=== PATIENT | male | born 1985 | race Hispanic/Latino ===

== ENCOUNTER 2016-08-15 12:42 | Emergency (ER) | payer OTHER ==
[2016-08-15 12:46] VITALS: RESP 18; TEMP 98.2
[2016-08-15] MEDS ORDERED: Oxycodone/Acetaminophen 5/325 mg Tab PO STA ×2 (12:52→16:00)
[2016-08-15] MEDS ORDERED: Oxycodone/Acetaminophen 5/325 mg Tab ONE ×2 (13:04→15:53)
[2016-08-15] MEDS ORDERED: ceFAZolin IV 2 gm in Dextrose 1 GM/50 ML BAG IVPB SCH (13:45)
--- NOTE | 2016-08-15 13:45 | C.PDOC ---
History Of Present Illness 30 yo male BIBA for evaluation of Right lower leg pain, swelling developed since last night " fell off my bed". Pt sts, "woke up this AM, was unable to put any weight on Right led". Pt denies LOC, syncope, headache, dizziness, neck pain, CP, abd. pain, N/V, back pain, pt denies obvious deformity, sensory or vascular deficits to B/L UEs and LEs. AT the time of evaluation, pt appears in pain. Time Seen by Provider: 08/15/16 12:49 Chief Complaint (Nursing): Lower Extremity Problem/Injury History Per: Patient History/Exam Limitations: no limitations Onset/Duration Of Symptoms: Sudden Onset (Last night) Past Medical History Reviewed: Historical Data, Nursing Documentation, Vital Signs Vital Signs: Last Vital Signs Temp 98.2 F 08/15/16 15:35 Pulse 75 08/15/16 16:00 Resp 18 08/15/16 16:00 BP 128/75 08/15/16 16:00 Pulse Ox 98 08/15/16 16:00 - Medical History PMH: Hiatal Hernia Family History: States: No Known Family Hx - Social History Hx Alcohol Use: Yes Hx Substance Use: No - Immunization History Hx Tetanus Toxoid Vaccination: Yes Hx Influenza Vaccination: No Hx Pneumococcal Vaccination: Yes Review Of Systems Except As Marked, All Systems Reviewed And Found Negative. Gastrointestinal: Negative for: Nausea, Vomiting, Abdominal Pain Musculoskeletal: Positive for: Leg Pain (Right lower leg pain and swelling ). Negative for: Neck Pain, Back Pain Neurological: Negative for: Headache, Dizziness Physical Exam - Physical Exam Appears: Well, Non-toxic Skin: Normal Color, Warm, Dry Head: Atraumatic, Normacephalic Eye(s): bilateral: PERRL Nose: No Deformity, No Tenderness Throat: Normal, No Erythema, No Exudate, No Drooling Neck: Normal ROM, Trachea Midline, No Midline Cervical Tenderness, No Paracervical Tenderness, No Step Off Deformity, Supple Chest: Symmetrical, No Deformity, No Tenderness Respiratory: No Stridor, No Wheezing Gastrointestinal/Abdominal: Normal Exam, Soft, No Tenderness Back: No Vertebral Tenderness, No Paraspinal Tenderness Extremity: Tenderness (severe tenderness over anterior aspect Right lower leg, pucture wound 2cm length noted.), No Pedal Edema, Capillary Refill, Swelling ( Right lower leg, diffuse) Neurological/Psych: Oriented x3, Normal Speech, Normal Motor, Normal Sensation, Normal Reflexes ED Course And Treatment - Laboratory Results Result Diagrams: 08/15/16 14:14 08/15/16 14:14 O2 Sat by Pulse Oximetry: 99 Pulse Ox Interpretation: Normal - Other Rad X-Ray - Right Ribia & Fibula X-Ray: Viewed By Me, Read By Radiologist Interpretation: PROCEDURE: Radiographs of the right tibia and fibula. HISTORY : injury. COMPARISON: None available. TECHNIQUE: Frontal and lateral views obtained. FINDINGS: BONES: There is acute comminuted did spiral fracture at the midshaft right tibia. JOINT SPACES: Unremarkable. OTHER FINDINGS: None. IMPRESSION: Acute comminuted spiral fracture at the midshaft of the right tibia. X-Ray - Right Ankle X-Ray: Viewed By Me, Read By Radiologist Interpretation: PROCEDURE: Right Ankle Radiographs. HISTORY: injury. COMPARISON: None. FINDINGS: BONES: The current study reveals a diagonal/ spiral fracture traversing the distal 1/2 -- 1/3 of the right tibia of better seen on dedicated radiographs of the right tibia and fibula. No other fractures are identified. . JOINTS: Joint spaces preserved. No osteoarthritis. Ankle mortise maintained. Talar dome intact. SOFT TISSUES: Normal. OTHER FINDINGS: None. IMPRESSION: Diagonal/ oblique fracture traversing the distal 1/2- 1/3 of the right fibula. Findings discussed with emergency room THERESA Tavares at approximately 3:10 p.m. with written down and read back verification. Progress Note: At 13:10, case discussed with and ortho THERESA Manrique evaluation recommend. At 13:20, ortho THERESA Manrique at bedside. Patient was seen by ortho THERESA Manrique and a long leg splint was applied by Hilaria. After the patient discussed his condition with his family, he refused further treatment at [facility] Patient reqeust to be dischagred and want to go to different facility for further evaluation and treatment. Case discussed with , ED attending and discharge AMA recommend at this time. Crutches provided, patient was advised on current condition, risk vs benefits of leaving. Pt understand and agrees with discharges AMA. Familt member at bedside to pick remover patient and " and will bring me to different hospital where orthopedsit waiting for me". Patient signed out AMA from and dischagred. Medical Decision Making Medical Decision Making: PLAN: * X-Ray - Tibia & Fibula, Right Ankle * CBC * Percocet PO * Ancef PO Disposition Counseled Patient/Family Regarding: Studies Performed, Diagnosis - Disposition Referrals: James Ricks MD [Staff Provider] - Disposition: HOME/ ROUTINE Disposition Time: 14:50 Condition: STABLE Instructions: Leg Fracture (ED), Against Medical Advice (ED) - Clinical Impression Clinical Impression: Tibial fracture, Left against medical advice - PA / ACO COORDINATOR / Resident Statement MD/DO has reviewed & agrees with the documentation as recorded. - Scribe Statement The provider has reviewed the documentation as recorded by the Scribe Lilly Cruz All medical record entries made by the Scribe were at my direction and personally dictated by me. I have reviewed the chart and agree that the record accurately reflects my personal performance of the history, physical exam, medical decision making, and the department course for this patient. I have also personally directed, reviewed, and agree with the discharge instructions and disposition.
[2016-08-15] MEDS ORDERED: HYDROmorphone 1 mg/ml ISec IVP STA (14:00)
[2016-08-15] MEDS ORDERED: ceFAZolin 1 gm FROZEN Premix 1 GM/50 ML ML IVPB ONE ×2 (14:12→14:29)
[2016-08-15 14:23] LABS: BASO % 0.4 % (0.0-2.0); EOS % 0.4 % (0.0-4.0); HEMATOCRIT 46.6 % (35.0-51.0); LYMPH % 10.8 % (20.0-40.0); MEAN CELL VOLUME 93.9 fL (80.0-94.0); MEAN CORPUSCULAR HEMOGLOBIN 31.8 pg (27.0-31.0); MEAN CORPUSCULAR HGB CONC 33.9 g/dL (33.0-37.0); MEAN PLATELET VOLUME 8.9 fL (7.2-11.7); MONO # 0.7 K/uL (0.0-0.8); MONO % 7.3 % (0.0-10.0); WHITE BLOOD COUNT 9.7 K/uL (4.8-10.8)
[2016-08-15] MEDS ORDERED: ceFAZolin IV 2 gm in Dextrose 1 GM/50 ML BAG IVPB STA (14:26)
--- NOTE | 2016-08-15 15:09 | RAD ---
PROCEDURE: Radiographs of the right tibia and fibula. HISTORY: injury COMPARISON: None available. TECHNIQUE: Frontal and lateral views obtained. FINDINGS: BONES: There is acute comminuted did spiral fracture at the midshaft right tibia. JOINT SPACES: Unremarkable. OTHER FINDINGS: None. IMPRESSION: Acute comminuted spiral fracture at the midshaft of the right tibia.
[2016-08-15 15:14] LABS: BLOOD UREA NITROGEN 10 mg/dL (9-20); CALCIUM 9.7 mg/dl (8.6-10.4); CARBON DIOXIDE 27 mmol/L (22-30); CHLORIDE 97 mmol/L (98-107); GFR AFRICAN-AMERICAN > 60; GLUCOSE,RANDOM 84 mg/dL (75-110); POTASSIUM 3.9 mmol/L (3.6-5.2); SODIUM 137 mmol/L (132-148)
--- NOTE | 2016-08-15 15:16 | RAD ---
PROCEDURE: Right Ankle Radiographs. HISTORY: injury COMPARISON: None FINDINGS: BONES: The current study reveals a diagonal/spiral fracture traversing the distal 1/2 -- 1/3 of the right tibia of better seen on dedicated radiographs of the right tibia and fibula. No other fractures are identified. . JOINTS: Joint spaces preserved. No osteoarthritis. Ankle mortise maintained. Talar dome intact SOFT TISSUES: Normal. OTHER FINDINGS: None. IMPRESSION: Diagonal/ oblique fracture traversing the distal 1/2- 1/3 of the right fibula. Findings discussed with emergency room THERESA Tavares at approximately 3:10 p.m. with written down and read back verification.
--- NOTE | 2016-08-15 17:53 | CP.PCM.CON ---
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 He says that when he woke up this morning pain was unbearable and he was unable to walk due to pain, so he came to ER. He admits to ETOH use last night. He admits to some tingling to foot. Denies CP/SOB/dizziness/nausea/vomiting. Denies pain in other extremities. Denies headache or head injury. Pain is severe , localized to mid [place] on right. No hip or ankle pain. Patient denies seeing bone, he denies any amount of bleeding from wound on leg. He says there was no blood on clothing or bed. Review of Systems - Review of Systems All systems: reviewed and no additional remarkable complaints except - Musculoskeletal Musculoskeletal: As Per HPI - Hematologic/Lymphatic Hematologic: absent: As Per HPI, Easy Bleeding, Easy Bruising, Lymphadenopathy, Other Past Patient History - Past Medical History & Family History Past Medical History?: Yes Past Family History: Reviewed and not pertinent - Past Social History Smoking Status: Current Some Days Smoker Alcohol: Social - CARDIAC Hx Cardiac Disorders: No - PULMONARY Hx Respiratory Disorders: No - NEUROLOGICAL Hx Neurological Disorder: No - HEENT Hx HEENT Problems: No - RENAL Hx Chronic Kidney Disease: No - ENDOCRINE/METABOLIC Hx Endocrine Disorders: No - HEMATOLOGICAL/ONCOLOGICAL Hx Blood Disorders: No - MUSCULOSKELETAL/RHEUMATOLOGICAL Hx Musculoskeletal Disorders: No - GASTROINTESTINAL Hx Gastrointestinal Disorders: Yes Other/Comment: hiatal hernia - GENITOURINARY/GYNECOLOGICAL Hx Genitourinary Disorders: No - PSYCHIATRIC Hx Psychophysiologic Disorder: No Hx Substance Use: No - SURGICAL HISTORY Hx Surgeries: No - ANESTHESIA Hx Anesthesia: No Meds Allergies/Adverse Reactions: Allergies Allergy/AdvReac Type Severity Reaction Status Date / Time sulfates Allergy Uncoded 08/15/16 12:54 Physical Exam - Constitutional Appears: Well, In Acute Distress - Head Exam Head Exam: ATRAUMATIC, NORMAL INSPECTION - ENT Exam ENT Exam: Mucous Membranes Moist - Neck Exam Neck exam: Positive for: Full Rom Additional comments: non tender - Respiratory Exam Respiratory Exam: NORMAL BREATHING PATTERN - Cardiovascular Exam Additional comments: +DP/PT pulses RLE - Extremities Exam Additional comments: +ROM ankle with pain, +AROM full flex and ext of toes without pain. No pain with passive ROM toes. Sensation intact to sural/med/lat plantar, saph, admits to slight tingling to sup and deep per nerves with light touch. Compartment ant/ lat/sup deep post all soft. TTP to anterior leg near fracture site. calves soft NT neg homans. +DP/PT pulses 2+ - Back Exam Back exam: NORMAL INSPECTION Additional comments: non tender - Neurological Exam Neurological exam: Alert, Oriented x3 - Psychiatric Exam Psychiatric exam: Normal Affect, Normal Mood - Skin Skin Exam: Dry (1cm linear wound to anterior lower leg at level of fracture, dry , scab, no active bleeding, no dried blood), Normal Color, Warm Results - Vital Signs Recent Vital Signs: Last Vital Signs Temp 98.2 F 08/15/16 12:42 Pulse 90 08/15/16 12:42 Resp 18 08/15/16 12:42 BP 144/94 H 08/15/16 12:42 Pulse Ox 99 08/15/16 15:40 - Labs Result Diagrams: 08/15/16 14:14 08/15/16 14:14 Labs: Laboratory Results - last 24 hr 08/15/16 08/15/16 08/15/16 14:14 14:14 14:14 WBC 9.7 RBC 4.96 Hgb 15.8 Hct 46.6 MCV 93.9 MCH 31.8 H MCHC 33.9 RDW 13.0 Plt Count 274 MPV 8.9 Neut % (Auto) 81.1 H Lymph % (Auto) 10.8 L [place] % (Auto) 7.3 Eos % (Auto) 0.4 Baso % (Auto) 0.4 Neut # 7.9 H Lymph # 1.0 [place] # 0.7 Eos # 0.0 Baso # 0.0 PT 11.1 INR 1.0 APTT 32 Sodium 137 Potassium 3.9 Chloride 97 L Carbon Dioxide 27 Anion Gap 17 BUN 10 Creatinine 0.7 L Est GFR ( Amer) > 60 Est GFR (Non-Af Amer) > 60 Random Glucose 84 Calcium 9.7 Assessment & Plan (1) Fracture of shaft of right tibia Assessment and Plan: Xrays reviewed: right ankle ap/mortise/lat and tib/fib ap/lat: Right tibial midshaft fx, mildly displaced, No fibular fx appreciated. No air noted on xrays. ? Gr I open Wound noted at site of fracture, however, no bleeding reported by patient. Does not have typical punch out poke hole appearance. It is possible that skin was tented at fracture or wound from fall. Will treat as open, patient given 2g ancef IV in ER. Irrigation of wound not possible as wound is closed. Rec tetanus if not up to date. No clinical suspicion of compartment syndrome. Pain well controlled with dilaudid and immobilization. Ice/elevation/maintain splint well padded long leg posterior/u splint applied, with xeroform to wound. Patient premedicated. NVID pre and post splinting. Patient requests transfer to [facility]. (Brother works with surgeon there) He has spoken with Dr. Victor Manuel Neal who has agreed to accept transfer. I personally discussed patient and gave report to PA of Dr. Neal on patient's cell phone at bedside. Fracture, exam, and wound described in detail. Per PA, patient is accepted by Dr. Neal for transfer. Report given by Malika YIN to transfer center at [facility]. After completion of my interaction with patient, he decided to sign out AMA and was to be transported by friend to [facility]. Above discussed with Dr. Ricks, including patient's request for transfer. Agrees with above treatment and plan. Status: Acute Radiology Interpretation - Tour Conductor Tour Conductor:: Radiologist, Automotive Services Manager - Radiology Interpretation #2 Interpretation: ccession No. : [id number] Patient Name / ID : SHYAM NI / [id number] Exam Date : 08/15/2016 12:58:02 ( Approved ) Study Comment : Sex / Age : M / 30Y Creator : LULU DUGGAN Dictator : Fredi Olson Trouble Operator : Mixing Plant Dumper : Fredi Olson Approver2 : Report Date : 08/15/2016 13:12:35 My Comment : PROCEDURE: Radiographs of the right tibia and fibula. HISTORY: injury COMPARISON: None available. TECHNIQUE: Frontal and lateral views obtained. FINDINGS: BONES: There is acute comminuted did spiral fracture at the midshaft right tibia. JOINT SPACES: Unremarkable. OTHER FINDINGS: None. IMPRESSION: Acute comminuted spiral fracture at the midshaft of the right tibia. - Radiology Interpretation #3 Interpretation: atient Name / ID : SHYAM NI / [id number] Exam Date : 08/15/2016 12:58:12 ( Approved ) Study Comment : Sex / Age : M / 30Y Creator : LULU DUGGAN Dictator : Cale Barrios MD Trouble Operator : Mixing Plant Dumper : Cale Barrios MD Approver2 : Report Date : 08/15/2016 13:12:35 My Comment : PROCEDURE: Right Ankle Radiographs. HISTORY: injury COMPARISON: None FINDINGS: BONES: The current study reveals a diagonal/spiral fracture traversing the distal 1/2 - - 1/3 of the right tibia of better seen on dedicated radiographs of the right tibia and fibula. No other fractures are identified. . JOINTS: Joint spaces preserved. No osteoarthritis. Ankle mortise maintained. Talar dome intact SOFT TISSUES: Normal. OTHER FINDINGS: None. IMPRESSION: Diagonal/ oblique fracture traversing the distal 1/2- 1/3 of the right fibula. Findings discussed with emergency room THERESA Tavares at approximately 3:10 p.m. with written down and read back verification. Review of Systems - Review of Systems Constitutional: Negative for: Fever, HPI, A, Chills, Sweats, DS, Weakness, FA, Malaise, Other, FF, BACON, IA, L, NS, SN, STORE OPERATIONS MANAGER, WG, WL, UN Eyes: Negative for: Pain, Vision Change, Conjunctivae Inflammation, Eyelid Inflammation, Redness, Other ENT: Negative for: Ear Pain, Ear Discharge, Nose Pain, Nose Discharge, Nose Congestion, Mouth Pain, Mouth Swelling, Throat Pain, Throat Swelling, Other, UN Respiratory: Negative for: Cough, Dry, Shortness of Breath, Hemoptysis, SOB with Exertion, Pleuritic Pain, Sputum, Wheezing Cardiovascular: Negative for: Chest Pain, Palpitations, Orthopnea, Paroxysmal Noc. Dyspnea, Edema, Light Headedness, Other Gastrointestinal: Negative for: Nausea, Vomiting, Abdominal Pain, Diarrhea, Constipation, Melena, Hematochezia, Other Genitourinary: Negative for: Dysuria, Frequency, Incontinence, Hematuria, Retention, Nocturia, Other Musculoskeletal: Positive for: Leg Pain Skin: Positive for: Other (wound to leg) Neurological: Negative for: Weakness, Numbness, Incoordination, Change in Speech , Confusion, Seizures, Other - Medications/Allergies Allergies/Adverse Reactions: Allergies Allergy/AdvReac Type Severity Reaction Status Date / Time sulfates Allergy Uncoded 08/15/16 12:54 Procedures Attestation:: I certify that I have explained the specified Operation(s) or Procedure(s), risks, benefits and reasonable alternatives to the Patient and/or other person responsible. The opportunity was given to ask questions and all questions answered - Orthopedic Splinting/Casting Injury #1 Side: right Lower Extremity Injury Location: lower leg Lower Extremity Immobilizer: posterior splint (long leg posterior/u splint ) Other Orthopedic Equipment: crutches
[2016-08-15 19:24] VITALS: BP 128/75; PULSE 75
[2016-08-15 22:58] VITALS: O2SAT 99
== END 2016-08-15 16:25 | disposition home or self-care (01) ==
LOC: C.ER 12:42
DX: S82.301A Unspecified fracture of lower end of right tibia, initial encounter for closed fracture (principal); W06.XXXA Fall from bed, initial encounter; Y92.003 Bedroom of unspecified non-institutional (private) residence as the place of occurrence of the external cause
CPT/HCPCS: 73590; 73610; 80048; 85025; 85610; 85730; 96365; 96375; 99285; J0690; J1170